=== PATIENT | female | born 1985 | race Two or more races ===

== ENCOUNTER 2017-01-20 16:37 | Emergency (ER) | payer OTHER ==
[~2017-01-20] VITALS: Ht 170.2 cm; Wt 72.6 kg
[2017-01-20 16:37] VITALS: BP 120/82
== END 2017-01-20 18:59 | disposition home or self-care (01) ==
LOC: ER 16:40
DX: M79.631 Pain in right forearm (principal)
CPT/HCPCS: 99283; A4606; Z7610